=== PATIENT | female | born 1965 | race Caucasian/White ===

== ENCOUNTER 2018-02-13 02:38 | Observation (INO) | payer MEDICARE, MEDICAID ==
[2018-02-13] VITALS (16 sets, daily range): BP systolic 104–149; BP diastolic 56–98
[~2018-02-13] VITALS: Ht 170.2 cm; Wt 128.8 kg
[~2018-02-13 02:38] MED LIST: CYCL10TA29 PO; DEXL60CA6 PO; DULO60CA56 PO; GABA-549 PO; INSU100C14 SQ; LANI SUBQ; LIRA0.6P3 SQ; LOSA-57 PO; METF-421 PO; METH2.5T43 PO; MORPHINE PO; NORT50CA40 PO; PRED-420 PO; ROS10 PO; TOFA5TAB PO; TOPI-23 PO
[2018-02-13] MEDS ORDERED: ONDANSETRON 4 MG/2 ML VIAL ONE (08:45)
[2018-02-13] MEDS ORDERED: fentaNYL CITR 250 MCG/5 ML AMP ONE (08:45)
[2018-02-13] MEDS ORDERED: PROPOFOL EMUL(*) 10MG/ML 20 ML 40 ML ONE (08:45)
[2018-02-13] MEDS ORDERED: LIDOCAINE MPF 1% 5 ML VIAL ONE (08:45)
[2018-02-13] MEDS ORDERED: FAMOTIDINE(*) 20MG/50ML PREMIX 50 ML IVPB ONE (10:12)
[2018-02-13] MEDS: CELECOXIB 200 MG CAP ONE ×2 (10:13→10:25)
[2018-02-13] MEDS ORDERED: KETAMINE HCL 200 MG/20 ML MDV ONE (10:30)
[2018-02-13] MEDS ORDERED: ROPIVACAINE 0.2% 20 ML VIAL ONE (10:34)
[2018-02-13] MEDS ORDERED: GABAPENTIN 300 MG CAP PO ONE (10:35)
[2018-02-13] MEDS ORDERED: CLINDAMYCIN 900 MG/6 ML 900 MG in DEXTROSE 5% 50 ML BAG 50 ML IVPB ONE (10:55)
[2018-02-13] MEDS ORDERED: MIDAZOLAM 2 MG/2 ML VIAL IVP PRN (10:55)
[2018-02-13] MEDS ORDERED: LIDOCAINE/SOD BICARB 8.4% SYR ID ONE (10:55)
[2018-02-13] MEDS ORDERED: NORMOSOL R SOLN(*) 1000 ML BAG 1,000 ML IV PRN (10:55)
[2018-02-13] MEDS ORDERED: CLINDAMYCIN(*) 900 MG/NS 50 ML 50 ML IVPB ONE (10:55)
[2018-02-13] MEDS ORDERED: KETOROLAC 30 MG/ML VIAL ONE (11:00)
[2018-02-13] MEDS ORDERED: LABETALOL HCL 100 MG/20ML VIAL ONE (11:00)
[2018-02-13] MEDS ORDERED: ACETAMINOPHEN(*)1000 MG/100 ML 100 ML IVPB ONE (11:30)
[2018-02-13] MEDS ORDERED: PROMETHAZINE 25 MG/ML 1 ML AMP ONE (13:32)
[2018-02-13] MEDS ORDERED: fentaNYL CITR 100 MCG/2 ML AMP ONE (13:48)
[2018-02-13] MEDS ORDERED: MORPHINE 2 MG/ML SYR IVP PRN (15:45)
[2018-02-13] MEDS ORDERED: ONDANSETRON 4 MG/2 ML VIAL IVP PRN (15:50)
--- NOTE | 2018-02-13 15:56 | OPERATIVE REPORT 1 ---
EVENT DATE: February 13, 2018 SURGEON: Alvin Yung MD ANESTHESIOLOGIST: Tung Nickerson MD ANESTHESIA: General LMA anesthesia. YOUTH TEACHER: Blair Sharpe PA-C PREOPERATIVE DIAGNOSIS Right shoulder rotator cuff tear as well as labral fraying, cartilage damage, and impingement. POSTOPERATIVE DIAGNOSIS Right shoulder rotator cuff tear as well as labral fraying, cartilage damage, and impingement. PROCEDURE PERFORMED Right shoulder arthroscopic rotator cuff repair, biceps tenotomy, labral debridement, chondroplasty, extensive debridement throughout the entire joint and subacromial space, and subacromial decompression. FINDINGS The patient had a tear in the rotator cuff which was amenable for repair, but a significant amount of cartilage damage in the shoulder and also in the labrum and bicipital complex and a subacromial spur. ESTIMATED BLOOD LOSS Minimal. DRAINS None. COMPLICATIONS None. IMPLANTS Biomet 2.9 JuggerKnot anchor as well as a free #2 FiberWire and a Cayenne 5.5 lateral row equivalent anchor. SPECIMENS None. TOURNIQUET TIME Not applicable. INDICATIONS AND HISTORY This patient is a 52-year-old female who presented to my clinic for evaluation of right shoulder pain and irritation going on for some time. She continued to have pain despite conservative management. A MRI revealed that she had a full- thickness rotator cuff tear, so therefore we talked to her about the implications of this as well as treatment options. She wanted to go ahead with a right shoulder arthroscopy with rotator cuff repair, biceps tenotomy, labral debridement, chondroplasty, subacromial decompression, and extensive debridement. I went over the risks associated with this. She does know she has pretty significant arthritis associated with this, but hopefully, this would relieve a lot of her pain and issues to try and prevent a total shoulder arthroplasty, especially given the fact that she is on chronic pain medications and also that we may not be able to completely control her pain as well as her oxygenation afterwards secondarily due to the fact of her chronic medical history. DESCRIPTION OF PROCEDURE As the patient was brought in the operating room, she and the procedure were both verified. She was placed supine on the operative table and induced and intubated by Anesthesia. She was then turned into the lateral decubitus position with the right shoulder towards the ceiling, and then the right arm was prepped and draped in the usual fashion. A timeout was observed verifying the correct patient and procedure. The standard incisions were made over the anterior and posterior aspects of the shoulder, and then the scope was inserted in the posterior aspect into the intra -articular portion of the shoulder joint itself. I then did a diagnostic arthroscopy, verifying that there was a significant amount of cartilage damage as well as labral fraying and cartilage damage throughout the glenohumeral joint and also a lot of fraying around the bicipital tendon. I then performed a chondroplasty on both the glenoid side as well as the humeral side. I then cleaned up the rest of the labrum, removed a loose fragment from this area, and did an extensive debridement and throughout the entire shoulder itself. I then debrided the labrum itself and cut the biceps tendon without any difficulty. This then allowed the labrum to fall back to a more natural position. I then debrided the undersurface of the rotator cuff and noted a significant tearing within the rotator cuff itself along the leading edge of the infraspinatus and along the supraspinatus. The subscapularis overall was fairly well attached and did not show any major signs of tearing associated with movement with internal and external rotation associated with his shoulder. I then went into the subacromial space where I performed a complete decompression up in this area including removing the bone spur off the anterior aspect of the acromion. Once I was able to do a subacromial decompression and remove all the bursitis, I then identified the rotator cuff which had a split within the fibers of the mid portion between the infraspinatus and supraspinatus and also a tear along the footprint of the back edge of the supraspinatus and leading edge of the infraspinatus. I then took a free FiberWire, and using the [employer] needle passer, I was able to pass this on each side of the in-line tear with the muscle fibers and then tie this over itself in order to make it one amenable tear to repair. I then put in a 2.9 JuggerKnot anchor into the footprint after decorticating this a small amount, and then I was able to pass the sutures from this. Four limbs in total were passed in a horizontal mattress-type fashion across the level of the rotator cuff to pull it back to the footprint. Once it was pulled back to the footprint , it had a little bit of a ledge to it, so therefore I then put in a 5.5 [place] anchor onto the lateral aspect to make a lateral row equivalent and pulled these sutures back. Once I did this, everything looked good. Everything laid down in a more natural position. I debrided a little bit more of the irritated tissue associated with this, but there were no signs of gapping or problems associated with internal and external rotation or abduction associated with the rotator cuff, and so therefore all instrumentation was removed. The fluid was drained out of the shoulder. The portal sites were closed with a 4-0 Monocryl, anesthetized with ropivacaine, and then dressed with Steri-Strips, gauze 4 x 4's, and a soft dressing. The patient was then put in an abduction sling, awakened, extubated, and transferred to PACU in stable condition. [place]
[2018-02-13] MEDS ORDERED: HYDROCORTISONE 100 MG/2 ML IVP ONE (16:55)
--- NOTE | 2018-02-13 17:04 | Hospitalist Progress Note ---
Subjective Progress Notes Subjective Patient seen post-op. Reviewed PMHX (RA - steroid dependent, type 2 DM, chronic pain, PE) and medications. At present she denies any complaints, but is somewhat somnolent. She does awaken and answer questions. Physical Exam Vital Signs Date Time Temp Pulse Resp B/P (MAP) Pulse Ox O2 Delivery O2 Flow Rate FiO2 02/13/18 15:55 94 Nasal Cannula 3.0 02/13/18 15:52 98.8 100 12 135/61 (85) Intake and Output 02/14/18 07:00 Intake Total 950 ml Balance 950 ml Intake IV Total 950 ml General Appearance: Other (somewhat somnolent, but does awaken and answer questions) Cardiovascular: Regular Rate and Rhythm (with soft/short systolic murmur) Respiratory: Other (diminished breath sounds bilaterally, but currently in right UE immobilizer/pillow) Assessment and Plan Problems: (1) Hypoxia Status: Acute Assessment & Plan: I suspect this is most likely a chronic problem. She was noted to be hypoxic in her evaluation before surgery. She could easily have some chronic lung disease including smoking related disease and/or possibly an extra-articular manifestation of her RA or related to her MTX therapy. She will most likely need to be on continuous oxygen at this point. (2) RA (rheumatoid arthritis) Status: Chronic Assessment & Plan: She has been managed with prednisone and MTX. (3) Steroid dependence Status: Chronic Assessment & Plan: Will place on stress dose of IV Solu-Cortef. Transition back to her oral prednisone tomorrow. (4) PE (pulmonary thromboembolism) Status: Resolved Assessment & Plan: Occurred approximately a year ago and she had a course of Xarelto. Would recommend early mobilization. If she does not mobilize quickly, would place on Lovenox. (5) Chronic pain Status: Chronic Assessment & Plan: Will continue her usual regimen of Cymbalta, gabapentin. (6) Type 2 diabetes mellitus Status: Chronic Assessment & Plan: ADA diet, resume insulin, monitor glucoses, and use SSI as needed. Exam Sepsis Risk: No Definite Risk MIGUEL WHEATLEY MD Feb 13, 2018 17:04
[2018-02-13] MEDS: INSULIN HUM LISPRO 100 UN/ML 3 ML VIAL SUBQ PRN ×2 (17:46→21:05)
[2018-02-13] MEDS ORDERED: INS GLAR 100 UN/ML (ER ONLY) 100 UNIT/ML SUBQ SCH (21:00)
[2018-02-13] MEDS: GABAPENTIN 300 MG CAP PO SCH (21:02)
[2018-02-13] MEDS: NORTRIPTYLINE HCL 25 MG CAP PO SCH (21:02)
[2018-02-13] MEDS: HYDROCORTISONE 100 MG/2 ML IVP SCH (21:04)
[2018-02-13] MEDS ORDERED: INSULIN GLARGINE 100 U/ML 3 ML PEN SUBQ SCH (22:01)
[2018-02-14 03:54] VITALS: BP 158/76
[2018-02-14 07:38] VITALS: BP 132/76
[2018-02-14] MEDS: INSULIN HUM LISPRO 100 UN/ML 3 ML VIAL SUBQ PRN ×2 (07:47→11:30)
[2018-02-14] MEDS ORDERED: metFORMIN HCL 500 MG TAB PO SCH (08:00)
[2018-02-14] MEDS: HYDROCORTISONE 100 MG/2 ML IVP SCH (08:31)
[2018-02-14] MEDS: GABAPENTIN 300 MG CAP PO SCH ×2 (08:31→13:43)
[2018-02-14] MEDS: NORTRIPTYLINE HCL 25 MG CAP PO SCH (08:31)
[2018-02-14] MEDS ORDERED: DULoxetine HCL 30 MG CAPCR PO SCH (09:00)
[2018-02-14] MEDS ORDERED: ROSUVASTATIN CALCIUM 10 MG TAB PO SCH (09:00)
[2018-02-14] MEDS ORDERED: PANTOPRAZOLE SOD 40 MG TABEC PO SCH (09:00)
[2018-02-14] MEDS ORDERED: LOSARTAN POTASSIUM 50 MG TAB PO SCH (09:00)
[2018-02-14 09:12] VITALS: Ht 170.2 cm; Wt 128.8 kg
--- NOTE | 2018-02-14 10:51 | Hospitalist Progress Note ---
Subjective Progress Notes Subjective She has concerns about pain medications this morning. She had no acute events overnight. Patient Complains of: Cardiovascular: No: Chest Pain Respiratory: No: Shortness of Breath Physical Exam Vital Signs Date Time Temp Pulse Resp B/P (MAP) Pulse Ox O2 Delivery O2 Flow Rate FiO2 02/14/18 09:30 83 02/14/18 07:40 Nasal Cannula 1.0 02/14/18 07:38 98.0 88 12 132/76 (94) Intake and Output 02/14/18 01:00 Intake Total 950 ml Balance 950 ml IV Total 950 ml # Voids 1 General Appearance: Alert, Awake, No Acute Distress, Afebrile Neuro: No Gross deficits Cardiovascular: Regular Rate and Rhythm Respiratory: No Respiratory Distress, Clear to Auscultation Psych: Alert & Oriented X3, Appropriate Mood & Affect Assessment and Plan Problems: (1) Hypoxia Status: Acute Assessment & Plan: I suspect this is most likely a chronic problem. She was noted to be hypoxic in her evaluation before surgery. She could easily have some chronic lung disease including smoking related disease and/or possibly an extra- articular manifestation of her RA or related to her MTX therapy. She will most likely need to be on continuous oxygen at this point. We will continue to wean throughout the day if possible. (2) RA (rheumatoid arthritis) Status: Chronic Assessment & Plan: She has been managed with prednisone and MTX. She did receive stress dose of steroids. (3) Steroid dependence Status: Chronic Assessment & Plan: Will place on stress dose of IV Solu-Cortef. Transition back to her oral prednisone tomorrow. (4) PE (pulmonary thromboembolism) Status: Resolved Assessment & Plan: Occurred approximately a year ago and she had a course of Xarelto. Would recommend early mobilization. If she does not mobilize quickly, would place on Lovenox. (5) Chronic pain Status: Chronic Assessment & Plan: Will continue her usual regimen of Cymbalta, gabapentin. (6) Type 2 diabetes mellitus Status: Chronic Assessment & Plan: ADA diet, resume insulin, monitor glucoses, and use SSI as needed. Stress dose steroids likely increased blood sugars. Exam Sepsis Risk: No Definite Risk GLENDA HENDRICKSON [facility] Feb 14, 2018 10:51
[2018-02-14 11:33] VITALS: BP 146/77
[2018-02-14] MEDS ORDERED: TOPIRAMATE 25 MG TAB PO SCH (17:00)
== END 2018-02-14 13:14 | disposition home or self-care (01) ==
LOC: OR 02:38 → MED 16:09
PROVIDERS: ADMIT Orthopaedic Surgery; ATTEND Orthopaedic Surgery
DX: M75.101 Unspecified rotator cuff tear or rupture of right shoulder, not specified as traumatic (principal); M75.41 Impingement syndrome of right shoulder; E11.9 Type 2 diabetes mellitus without complications
CPT/HCPCS: 29826; 29827; 36416; 82948; 94667; 96372; A4565; A9270; C1713; G0378; J0131; J1720; J1815; J1885; J2001; J2250; J2405; J2550; J2704; J2795; J3010; J3490